=== PATIENT | male | born 1955 | race Caucasian/White ===

== ENCOUNTER → 2023-12-04 | Outpatient (CLI) | payer MEDICARE, OTHER ==
--- NOTE | 2023-12-04 10:29 | CT ---
Exam: CT Chest without contrast. Date: 12/04/2023. 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 Technique: CT examination of the chest was performed without contrast. Coronal and sagittal reformats were performed. CT dose lowering techniques were used, to include: automated exposure control, adjus tment for patient size, and/or use of iterative reconstruction. FINDINGS: Mediastinum and Nadya: There is no axillary, mediastinal or hilar lymphadenopathy. Pleural and Pericardial spaces: There are no pleural or pericardial effusions. Upper Abdomen: The visualized upper abdomen is unremarkable. Cardiovascular: The thoracic aorta is normal in size. Lung Parenchyma and Airways: The 7.4 mm nodule along the pleural surface of the major fissure in the left lower lobe on series 12 image 193. An additional larger pleural based nodule along the major fis sure in the left lower lobe anteriorly measures up to 1.7 x 0.8 cm in diameter. Lungs otherwise appea r clear. There is no additional evidence of pleural calcifications are asbestos-related lung disease at this time. Bones: No fracture or aggressive osseous lesion. IMPRESSION: 1. Pulmonary nodules in the left lower lobe. PET/CT would BE recommended for further evaluation. Alte rnatively, a 3 month follow-up may help further assess or tissue sampling. 2. No CT evidence of asbestos-related lung disease.
== END | disposition home or self-care (01) ==
LOC: RADCTMAIN 08:53
PROVIDERS: ATTEND Family Medicine
DX: R91.8 Other nonspecific abnormal finding of lung field (principal); J67.8 Hypersensitivity pneumonitis due to other organic dusts
CPT/HCPCS: 71250

== ENCOUNTER → 2024-01-08 | Outpatient (CLI) | payer MEDICARE, OTHER ==
--- NOTE | 2024-01-11 11:48 | PE ---
EXAMINATION TYPE: PET CT fusion skull to thigh DATE OF EXAM: 01/08/2024 CLINICAL INDICATION:Male, 68 years old with history of R91.1 SOLITARY PULMONARY NODULE; TECHNIQUE: Following the intravenous administration of 10.89 mCi of F-18 FDG, whole body images are performed from the skull base to the midthigh. Images are reviewed on the computer in the coronal, axial, and sagittal planes. Reconstructed rotating images are created on independent workstation and reviewed on the computer. A non-contrast CT is performed in conjunction with the PET scan. Glucose level 109 mg/dL CT DLP: 279 mGycm, Automated exposure control for dose reduction was used. COMPARISON: CT 12/04/2023, PET/CT None, FINDINGS: Mediastinal SUV mean is 1.6. Hepatic parenchyma SUV mean is 2.2. SKULL BASE AND NECK: No suspicious radiotracer activity. CHEST, MEDIASTINUM, AND HILAR REGION: Pulmonary nodule along the left major fissure measuring 16 x 8 mm Max SUV 1.4. ABDOMEN AND PELVIS: No suspicious radiotracer activity. MUSCULOSKELETAL STRUCTURES: No suspicious radiotracer activity. OTHER CT: Atherosclerosis of the heart arterial vasculature including the coronary arteries. IMPRESSION: Pulmonary nodule measuring up to 16 mm along the left major fissure on the left lower lung. FDG level s near background. Consider short-term follow-up CT in 3 months to ensure stability. Findings may rep resent hypometabolic malignancy versus, chronic granulomatous disease. No additional abnormal FDG act ivity visualized.
== END | disposition home or self-care (01) ==
LOC: RADPETMAIN 06:23
PROVIDERS: ATTEND Family Medicine
DX: R91.1 Solitary pulmonary nodule (principal)
CPT/HCPCS: 78815; A9552

== ENCOUNTER → 2024-05-23 | Outpatient (CLI) | payer MEDICARE, OTHER ==
--- NOTE | 2024-06-22 10:52 | CT ---
EXAMINATION TYPE: CT chest w con CT DLP: 205.90 mGycm, Automated exposure control for dose reduction was used. DATE OF EXAM: 06/22/2024 10:41 AM COMPARISON: PET CT 01/06/2024, CT chest 12/04/2023 CLINICAL INDICATION:Male, 68 years old with history of R91.1 Pulmonary Nodule; [facility], TECHNIQUE: Multiple axial images were obtained through the chest following the administration of 100 cc of Isovue 300. . Coronal and sagittal reformats reviewed. FINDINGS: LUNGS/ PLEURA: No pleural effusion or pneumothorax. No focal consolidation. Left lung base calcified granuloma. There is a stable 1.6 x 0.6 cm pulmonary nodule along the left major fissure in the left l ower lung (series 4, image 42). Additional previously seen 7 mm nodule along the left major fissure has decreased in size and now appears as if atelectatic change. No new or enlarging pulmonary nodules . AIRWAY: Patent and unremarkable.. HEART: Size within normal limits. No pericardial effusion. MEDIASTINUM: No gross evidence of adenopathy. VASCULATURE: No aortic aneurysm. Mild atherosclerotic calcification of the aorta and its branches. M ost prominent along the left subclavian artery proximally. MUSCULOSKELETAL: No acute osseous abnormalities. No aggressive osseous lesion. SOFT TISSUES/LYMPH NODES: Unremarkable. LOWER NECK: No significant findings. UPPER ABDOMEN: Small hiatal hernia. Fatty infiltration of the liver. IMPRESSION: Stable left lower lung 1.6 cm pulmonary nodule along the left major fissure. No new or enlarging pulm onary nodules. Follow-up CT chest in 6 months is recommended.
== END | disposition home or self-care (01) ==
LOC: RADCTMAIN 09:11
PROVIDERS: ATTEND Family Medicine
DX: R91.1 Solitary pulmonary nodule (principal)
CPT/HCPCS: 82565; 84520; 71260; Q9967

== ENCOUNTER → 2024-12-13 | Outpatient (CLI) | payer MEDICARE, OTHER ==
[2024-12-13 08:38] LABS: African American GFR (CKD) 78 (>60 ml/min/1.73 sqM); Blood Urea Nitrogen 14 mg/dL (9-20); Non-African American GFR(CKD) 68 (>60 ml/min/1.73 sqM)
--- NOTE | 2024-12-13 16:07 | CT ---
EXAMINATION TYPE: CT chest w con DATE OF EXAM: 12/13/2024 11:23 AM COMPARISON: None. CLINICAL INDICATION: Male, 69 years old with history of R91.1 PULMONARY NODULE, pulmonary nodules TECHNIQUE: Axial images were obtained at 5 mm thick sections. Reconstructed images are reviewed on [employer] computer in the coronal plane. Contrast used:100 mL of Isovue 300 with IV Contrast, (none if empty) Oral contrast used: (none if empty) CT DLP: 317.1 mGycm, Automated exposure control for dose reduction was used. FINDINGS: Portion of the thyroid visualized is normal. Minimal infiltrate along the anterior right midlung. Series 4 image 3 may be subsegmental atelectasis . Minimal thickening along the major fissure on the left is present, image 46 series 4 this area measur es 1.7 x 1.1 cm. This is slightly larger than the 1.5 x 0.8 cm previous measurement. Consider follow- up with PET/CT. No enlarged mediastinal or hilar adenopathy is evident. Shotty lymphadenopathy is present. The asce nding aorta diameter at the level of the main pulmonary artery is 3.6 cm. The main pulmonary artery diameter at the bifurcation is 2.[address] sections are obtained through the upper abdomen. Abdomen is essentially unremarkable. IMPRESSION: 1. Some thickening along the major fissure at the left lung base. Consider follow-up with PET CT. [facility], , 12/13/2024 4:04 PM
== END | disposition home or self-care (01) ==
LOC: RADCTMAIN 07:57
PROVIDERS: ATTEND Family Medicine
DX: R91.1 Solitary pulmonary nodule (principal); R91.8 Other nonspecific abnormal finding of lung field
CPT/HCPCS: 82565; 84520; 71260; 36415; Q9967

== ENCOUNTER → 2025-01-13 | Outpatient (CLI) | payer MEDICARE, OTHER ==
--- NOTE | 2025-01-14 20:18 | PE ---
EXAMINATION TYPE: PET CT fusion skull to thigh DATE OF EXAM: 01/13/2025 CLINICAL INDICATION:Male, 69 years old with history of R91.1 SPN; TECHNIQUE: Following the intravenous administration of 10.03 mCi of F-18 FDG, whole body images are performed from the skull base to the midthigh. Images are reviewed on the computer in the coronal, axial, and sagittal planes. Reconstructed rotating images are created on independent workstation and reviewed on the computer. A non-contrast CT is performed in conjunction with the PET scan. Glucose level 105 mg/dL CT DLP: 475.93 mGycm, Automated exposure control for dose reduction was used. COMPARISON: CT 12/13/2024, 06/22/2024, 12/04/2023, PET/CT 01/08/2024, MRI: None FINDINGS: Mediastinal SUV mean is 2.1. Hepatic parenchyma SUV mean is 2.6. SKULL BASE AND NECK: Stable 1.4 cm pulmonary nodule along the left major fissure in the left lower lobe. No significant FD G activity. Demonstrates a maximum SUV of 1.1, previously 1.4. CHEST, MEDIASTINUM, AND HILAR REGION: No suspicious radiotracer activity. ABDOMEN AND PELVIS: No suspicious radiotracer activity. MUSCULOSKELETAL STRUCTURES: No suspicious radiotracer activity. OTHER CT: Bilateral palatine tonsilloliths. Bilateral carotid bulb calcifications. Atherosclerotic ca lcification of the aorta and its branches. Mild to moderate coronary arterial calcifications along th e LAD. Mild bilateral gynecomastia. IMPRESSION: Stable pulmonary nodule measuring up to 1.4 cm along the left major fissure in the left lower lobe da ting back to 12/04/2023. FDG levels are again near background. Hypometabolic malignancy is not exclude d. Follow-up CT in 6-12 months is recommended. [facility], , 01/14/2025 8:16 PM
== END | disposition home or self-care (01) ==
LOC: RADPETMAIN 06:31
PROVIDERS: ATTEND Physician Assistant
DX: R91.1 Solitary pulmonary nodule (principal); I70.0 Atherosclerosis of aorta; E11.9 Type 2 diabetes mellitus without complications
CPT/HCPCS: 78815; A9552